=== PATIENT | male | born 1995 | race Caucasian/White ===

== ENCOUNTER 2017-12-27 11:49 | Outpatient (CLI) | payer MEDICAID, OTHER | END 2017-12-27 11:50 | disposition home or self-care (01) | LOC: LAB 11:49 | DX: Z01.89 Encounter for other specified special examinations (principal) | CPT/HCPCS: 36415 ==

== ENCOUNTER 2020-06-17 21:23 | Outpatient (CLI) | payer OTHER, MEDICAID ==
--- OUTSIDE RECORDS SUMMARY | 2020-06-22 01:48 | EXTERNAL MEDICAL SUMMARY RPT | Continuity of Care Document ---
:1995 Demographics Phone Unavailable Preferred Language Unknown Marital Status Unknown Yarsani Affiliation Unknown Race Unknown Ethnic Group Unknown Author Organization [facility] Address [address] [id number] Phone Support Name Relationship Address Phone ANA CRISTINA CONNORS Unavailable Unavailable Unavailable Problems date description facility 2017-12-27 11:49 ENCOUNTER FOR OTHER SPECIFIED [facility] SPECIAL EXAMINATIONS Allergies date description facility sulfamethoxazole [facility] trimethoprim [facility] Social History date description facility [id number]
== END 2020-06-17 21:24 | disposition home or self-care (01) ==
LOC: LAB 21:23
PROVIDERS: ATTEND Pathology Blood Banking & Transfusion Medicine
DX: Z01.89 Encounter for other specified special examinations (principal)
CPT/HCPCS: 36415